=== PATIENT | male | born 1945 | race Caucasian/White ===

== ENCOUNTER 2020-12-25 17:04 | Inpatient (IN) ==
[2020-12-25] MEDS ORDERED: Lactated Ringers 1000 ml BAG 1,000 ML IV ONE ×2 (17:55→18:31)
[2020-12-25] MEDS ORDERED: Thiamine 100 MG/ML 2 ml VIAL 100 MG, Folic Acid IV 1 MG, Multiple Vitamin IV ADULT 10 M... IV ONE (18:31)
[2020-12-25 18:45] LABS: ABS Lymphocytes 0.3 10^3/ul (1.0-4.8); ABS Monocytes 0.6 10^3/ul (0-0.8); ABS Neutrophils 3.9 10^3/ul (1.5-7.7); Eosinophil % 0.1 %; Hematocrit 15 % (42-52); Hemoglobin 5.1 g/dL (14.0-18.0); Lymphocyte % 6.9 %; Mean Corpuscular HGB Conc 33 g/dL (31-36); Mean Corpuscular Hemoglobin 31 pg (27-31); Mean Corpuscular Volume 92 fL (80-94); Mean Platelet Volume 8.7 fL (7.4-10.4); Nucleated Red Blood Cells % 0.1; Platelet Count 236 10^3/uL (150-450); Red Blood Count 1.68 10^6 /uL (4.18-5.48); Red Cell Distribution Width 14 % (10-15); White Blood Count 4.8 10^3/uL (3.5-10.8)
[2020-12-25] MEDS ORDERED: Ondansetron 4 mg VIAL 2 MG/ML 2 ml VIAL IV PRN (18:47)
[2020-12-25 18:57] LABS: ALT 7 U/L (7-52); AST 10 U/L (13-39); Albumin 3.5 g/dL (3.2-5.2); Albumin/Globulin Ratio 1.7 (1-3); Alkaline Phosphatase 59 U/L (35-149); Blood Urea Nitrogen 88 mg/dL (6-24); CO2 Carbon Dioxide 17 mmol/L (22-32); Calcium 8.4 mg/dL (8.6-10.3); Globulin 2.1 g/dL (2-4); Glucose 125 mg/dL (70-100); Potassium 4.7 mmol/L (3.5-5.0); Sodium 142 mmol/L (135-145); Total Protein 5.6 g/dL (6.4-8.9)
[2020-12-25 19:00] LABS: Anion Gap 8 mmol/L (2-11); Chloride 117 mmol/L (101-111)
[2020-12-25] MEDS ORDERED: LORazepam 2 mg VIAL 1 ml IV PUSH SCH (19:00)
[2020-12-25] MEDS ORDERED: Dextrose 50% Syringe 50 ml 25 GM/50 ML SYRINGE IV PUSH PRN (19:07)
[2020-12-25 19:24] LABS: Rapid COVID-19 Molecular Undetected (Undetected)
[2020-12-25] MEDS: Pantoprazole 80 mg in NS BAG 80 MG/250 ML BAG IV SCH (19:44)
[2020-12-26 08:07] LABS: Hematocrit 21 % (42-52); Hemoglobin 7.2 g/dL (14.0-18.0); Mean Corpuscular HGB Conc 34 g/dL (31-36); Mean Corpuscular Hemoglobin 31 pg (27-31); Mean Corpuscular Volume 91 fL (80-94); Mean Platelet Volume 9.1 fL (7.4-10.4); Platelet Count 209 10^3/uL (150-450); Red Blood Count 2.32 10^6 /uL (4.18-5.48); Red Cell Distribution Width 14 % (10-15); White Blood Count 5.7 10^3/uL (3.5-10.8)
[2020-12-26 08:26] LABS: Calcium 8.9 mg/dL (8.6-10.3); Potassium 4.3 mmol/L (3.5-5.0)
[2020-12-26] MEDS: Multivitamins/Minerals TAB PO SCH (08:34)
[2020-12-26] MEDS: Lactated Ringers 1000 ml BAG 1,000 ML IV SCH ×2 (08:35→19:30)
[2020-12-26] MEDS: Pantoprazole 80 mg in NS BAG 80 MG/250 ML BAG IV SCH (09:15)
[2020-12-26 09:53] LABS: ABS Lymphocytes 0.7 10^3/ul (1.0-4.8); ABS Monocytes 1.1 10^3/ul (0-0.8); ABS Neutrophils 3.9 10^3/ul (1.5-7.7); Eosinophil % 0.7 %; Lymphocyte % 11.9 %; Nucleated Red Blood Cells % 0.1; RBC Morphology Normal (Normal)
[2020-12-26 12:05] LABS: Hematocrit 23 % (42-52); Hemoglobin 7.6 g/dL (14.0-18.0)
[2020-12-26 12:13] LABS: INR 1.09 (0.86-1.15)
[2020-12-26] MEDS ORDERED: fentaNYL 100 mcg/2 ml 50 MCG/ML VIAL ONE (12:50)
[2020-12-26] MEDS ORDERED: Midazolam 10 mg/10 ml VIAL 1 mg/ml 10 ml VIAL (10 mg) ONE (12:50)
[2020-12-26 14:37] LABS: % Iron Saturation 13 % (15-55); Iron 35 ug/dL (50-212); Total Iron Binding Capacity 276 mcg/dL (250-450); Transferrin 197 mg/dL (203-362); Unsaturated Iron Binding < 261 ug/dL
[2020-12-26] MEDS ORDERED: Lactated Ringers 500 ml BAG 500 ML IV SCH (14:45)
[2020-12-26 14:56] LABS: Ferritin 95.1 ng/mL (24-336)
[2020-12-26] MEDS ORDERED: Iron Sucrose 200 MG in NS 0.9% 100 ml BAG 100 ML IVPB ONE (18:00)
[2020-12-26 18:13] LABS: Hematocrit 20 % (42-52); Hemoglobin 6.9 g/dL (14.0-18.0)
[2020-12-26] MEDS ORDERED: Pantoprazole VIAL 40 MG VIAL IV SCH (21:00)
[2020-12-26] MEDS: Pantoprazole VIAL 40 MG VIAL IV SCH (23:42)
[2020-12-27 08:56] LABS: Hematocrit 25 % (42-52); Hemoglobin 8.6 g/dL (14.0-18.0); Mean Corpuscular HGB Conc 34 g/dL (31-36); Mean Corpuscular Hemoglobin 30 pg (27-31); Mean Corpuscular Volume 89 fL (80-94); Mean Platelet Volume 8.7 fL (7.4-10.4); Platelet Count 240 10^3/uL (150-450); Red Blood Count 2.82 10^6 /uL (4.18-5.48); Red Cell Distribution Width 15 % (10-15); White Blood Count 6.3 10^3/uL (3.5-10.8)
[2020-12-27] MEDS: Pantoprazole VIAL 40 MG VIAL IV SCH (08:56)
[2020-12-27] MEDS: Multivitamins/Minerals TAB PO SCH (08:56)
[2020-12-27 09:12] LABS: Calcium 9.3 mg/dL (8.6-10.3); Magnesium 1.5 mg/dL (1.9-2.7); Potassium 3.9 mmol/L (3.5-5.0)
[2020-12-27] MEDS ORDERED: Magnesium Sulfate 2 gm BAG 2 GM/50 ML BAG IVPB ONE (09:29)
[2020-12-27 14:12] LABS: Hematocrit 25 % (42-52); Hemoglobin 8.4 g/dL (14.0-18.0)
[2020-12-27] MEDS ORDERED: Iron Sucrose 200 MG in NS 0.9% 100 ml BAG 100 ML IVPB ONE (14:30)
[2020-12-27 20:12] VITALS: BP 118/68
== END 2020-12-27 17:45 | disposition home or self-care (01) | DRG 392 ==
LOC: ED 17:04 → MED 20:50 → SUATTDRO 20:50 → EDSTATUS 21:22 → MED 23:07
PROVIDERS: ADMIT Hospitalist; ATTEND Internal Medicine